=== PATIENT | male | born 1985 | race Caucasian/White ===

== ENCOUNTER 2020-12-28 22:02 | Inpatient (IN) | payer MEDICAID ==
[~2020-12-28] VITALS: Ht 175.3 cm; Wt 65.8 kg
[2020-12-28] MEDS ORDERED: PANTOPRAZOLE SODIUM 40 MG/VIAL IV STA (23:14)
[2020-12-28] MEDS ORDERED: SODIUM CHLORIDE 0.9% 1,000 ML IV ONE (23:15)
[2020-12-29 00:23] LABS: BASOPHILS % 1.1 % (0.0-2.0); HEMATOCRIT. 41.5 % (42.0-52.0); HEMOGLOBIN. 14.3 g/dL (14.0-18.0); LYMPHOCYTES % 17.8 % (20.0-50.0); MEAN CORPUSCULAR HEMOGLOBIN 30.2 pg (28.0-32.0); MEAN CORPUSCULAR VOLUME 87.5 fL (80.0-94.0); MEAN PLATELET VOLUME 7.5 fl (7.4-10.4); MONOCYTES % 6.9 % (2.0-8.0); NEUTROPHILS % 72.2 % (40.0-76.0); PLATELET 375 x1000/uL (130-400); RED BLOOD CELL COUNT 4.74 mill/uL (4.7-6.1); RED CELL DISTRIBUTION WIDTH 13.1 % (11.6-14.6)
[2020-12-29 00:29] LABS: CHLORIDE 105 mEq/L (98-107)
[2020-12-29 00:48] LABS: CLARITY URINE CLEAR (CLEAR); COLOR URINE YELLOW (YELLOW); KETONES URINE NEGATIVE (NEGATIVE); LEUKOCYTE ESTERASE URINE NEGATIVE (NEGATIVE); NITRITE URINE NEGATIVE (NEGATIVE); OCCULT BLOOD URINE NEGATIVE (NEGATIVE); PH URINE 7.5 (4.5-8.0); PROTEIN URINE NEGATIVE (NEGATIVE); SPECIFIC GRAVITY URINE 1.021 (1.005-1.030); UROBILINOGEN URINE 0.2 E.U./dL (0.2-1.0)
[2020-12-29 01:09] LABS: PROTHROMBIN TIME 10.3 sec (9.6-11.0)
[2020-12-29] MEDS ORDERED: ONDANSETRON HCL 4MG/2ML INJ IV ONE (03:00)
[2020-12-29] MEDS ORDERED: MORPHINE SULFATE 4 MG/ML CPJ (NOT FOR IM USE) IV ONE (03:00)
[2020-12-29] MEDS ORDERED: LORAZEPAM 2MG/ML CPJ IV PRN (07:45)
[2020-12-29] MEDS ORDERED: MORPHINE SULFATE 2 MG/ML CPJ (NOT FOR IM USE) IV PRN (07:45)
[2020-12-29] MEDS ORDERED: HYDRALAZINE 20MG/ML VIAL IV PRN (07:45)
[2020-12-29] MEDS ORDERED: IPRATROPIUM/ALBUTEROL 0.5-3(2.5)MG/3ML NEB NEB PRN (07:45)
[2020-12-29] MEDS ORDERED: GUAIFENESIN 200MG/10ML SUGAR FREE UDC PO PRN (07:45)
[2020-12-29] MEDS ORDERED: DOCUSATE SODIUM 100MG CAPSULE PO PRN (07:45)
[2020-12-29] MEDS ORDERED: HYDROCODONE/ACETAMINOPHEN 10/325MG TABLET PO PRN (07:45)
[2020-12-29] MEDS ORDERED: ONDANSETRON HCL 4MG/2ML INJ IV PRN (07:45)
[2020-12-29] MEDS ORDERED: NA PHOS,M-B/NA PHOS,DI-BA ENEMA 118ML PR PRN (07:45)
[2020-12-29] MEDS ORDERED: DIPHENHYDRAMINE 50MG/ML VIAL IV PRN (07:45)
[2020-12-29] MEDS ORDERED: ACETAMINOPHEN 325MG TABLET PO PRN (07:45)
[2020-12-29] MEDS ORDERED: MAGNESIUM/ALUMINUM HYDROXIDE/SIMETHICONE 30ML UDC PO PRN (07:45)
[2020-12-29] MEDS ORDERED: CLONIDINE 0.1MG TABLET PO PRN (07:45)
[2020-12-29] MEDS ORDERED: MVI, ADULT NO.1 10 ML, FOLIC ACID 1 MG, THIAMINE HCL 100 MG in SODIUM CHLORIDE 0.9% 1,0... IV SCH (08:00)
[2020-12-29 10:49] VITALS: BP 129/89
[2020-12-29] MEDS: SODIUM CHLORIDE 0.9% INJ 3ML FLUSH IVF SCH ×2 (14:00→21:20)
[2020-12-29] MEDS: PANTOPRAZOLE SODIUM 40 MG/VIAL IV SCH ×2 (15:14→21:19)
[2020-12-29] MEDS: METOCLOPRAMIDE HCL 10MG/2ML VIAL IV SCH ×2 (15:15→18:54)
[2020-12-29 16:00] VITALS: BP 116/88
[2020-12-29] MEDS: SODIUM CHLORIDE 0.45% 1,000 ML IV SCH (18:54)
[2020-12-29 20:00] VITALS: BP 128/93
[2020-12-30] VITALS: BP 96/64
[2020-12-30 04:00] VITALS: BP 125/70
[2020-12-30 05:58] LABS: CHLORIDE 108 mEq/L (98-107)
[2020-12-30 06:01] LABS: PROTHROMBIN TIME 10.7 sec (9.6-11.0)
[2020-12-30 06:20] LABS: BASOPHILS % 2.2 % (0.0-2.0); EOSINOPHILS % 7.9 % (0.0-5.0); HEMOGLOBIN. 13.2 g/dL (14.0-18.0); LYMPHOCYTES % 40.6 % (20.0-50.0); MEAN CORPUSCULAR HEMOGLOBIN 30.6 pg (28.0-32.0); MEAN CORPUSCULAR VOLUME 88.2 fL (80.0-94.0); MEAN PLATELET VOLUME 7.7 fl (7.4-10.4); MONOCYTES % 8.1 % (2.0-8.0); NEUTROPHILS % 41.2 % (40.0-76.0); PLATELET 347 x1000/uL (130-400); RED BLOOD CELL COUNT 4.31 mill/uL (4.7-6.1); RED CELL DISTRIBUTION WIDTH 13.2 % (11.6-14.6)
[2020-12-30] MEDS: SODIUM CHLORIDE 0.9% INJ 3ML FLUSH IVF SCH ×3 (06:48→21:18)
[2020-12-30] MEDS: METOCLOPRAMIDE HCL 10MG/2ML VIAL IV SCH ×5 (06:52→23:59)
[2020-12-30 08:00] VITALS: BP 136/68
[2020-12-30] MEDS: SODIUM CHLORIDE 0.45% 1,000 ML IV SCH ×3 (08:00→16:00)
[2020-12-30] MEDS: MULTIVITAMINS,THER W-MINERALS TABLET PO SCH (09:00)
[2020-12-30] MEDS: FOLIC ACID 1MG TABLET PO SCH (09:00)
[2020-12-30] MEDS: THIAMINE HCL 100MG TABLET PO SCH (09:00)
[2020-12-30] MEDS: PANTOPRAZOLE SODIUM 40 MG/VIAL IV SCH ×2 (09:05→21:16)
[2020-12-30] MEDS ORDERED: KETAMINE HCL 50 MG/ML 10ML ONE (11:00)
[2020-12-30] MEDS ORDERED: MIDAZOLAM HCL 5 MG/5 ML VIAL ONE (11:03)
[2020-12-30] MEDS ORDERED: LIDOCAINE HCL 1% 20ML VIAL (Pyxis) INJ ONE (11:03)
[2020-12-30] MEDS ORDERED: PROPOFOL 200MG/20ML VIAL IV ONE (11:03)
[2020-12-30] MEDS: SUCRALFATE 1 G/10 ML UDC PO SCH ×3 (14:03→21:16)
[2020-12-30] MEDS ORDERED: HYDRALAZINE 10 MG in SODIUM CHLORIDE 0.9% 49.5 ML IV PRN (17:00)
[2020-12-30 20:00] VITALS: BP 118/90
[2020-12-31] VITALS: BP 123/88
[2020-12-31 04:00] VITALS: BP 127/89
[2020-12-31 05:25] LABS: CHLORIDE 107 mEq/L (98-107)
[2020-12-31 05:28] LABS: BASOPHILS % 3.2 % (0.0-2.0); EOSINOPHILS % 6.8 % (0.0-5.0); HEMOGLOBIN. 13.2 g/dL (14.0-18.0); LYMPHOCYTES % 32.4 % (20.0-50.0); MEAN CORPUSCULAR HEMOGLOBIN 30.7 pg (28.0-32.0); MEAN CORPUSCULAR VOLUME 88.2 fL (80.0-94.0); MEAN PLATELET VOLUME 7.9 fl (7.4-10.4); MONOCYTES % 8.8 % (2.0-8.0); NEUTROPHILS % 48.8 % (40.0-76.0); PLATELET 327 x1000/uL (130-400); RED CELL DISTRIBUTION WIDTH 12.8 % (11.6-14.6)
[2020-12-31] MEDS: SODIUM CHLORIDE 0.45% 1,000 ML IV SCH ×2 (06:11)
[2020-12-31] MEDS: METOCLOPRAMIDE HCL 10MG/2ML VIAL IV SCH ×2 (06:11→12:00)
[2020-12-31] MEDS: SUCRALFATE 1 G/10 ML UDC PO SCH ×2 (06:11→12:20)
[2020-12-31] MEDS: SODIUM CHLORIDE 0.9% INJ 3ML FLUSH IVF SCH (06:12)
[2020-12-31 08:00] VITALS: BP 123/81
[2020-12-31] MEDS: THIAMINE HCL 100MG TABLET PO SCH (10:15)
[2020-12-31] MEDS: MULTIVITAMINS,THER W-MINERALS TABLET PO SCH (10:15)
[2020-12-31] MEDS: FOLIC ACID 1MG TABLET PO SCH (10:15)
[2020-12-31] MEDS: PANTOPRAZOLE SODIUM 40 MG/VIAL IV SCH (10:15)
[2020-12-31 11:03] VITALS: BP 123/81
[2020-12-31 12:10] VITALS: BP 129/96
== END 2020-12-31 12:45 | disposition home or self-care (01) | DRG 241 ==
LOC: ER 22:02 → 6EST 12-29 02:19 → EDBEDREQTM 12-29 02:23 → EDBEDREQ 12-29 02:23 → ENRESERV 12-29 07:09
PROVIDERS: ADMIT Internal Medicine; ATTEND Internal Medicine
PROC: 0DB78ZX Excision of Stomach, Pylorus, Via Natural or Artificial Opening Endoscopic, Diagnostic (ICD-10-PCS; principal; 2020-12-30)
DX: K29.71 Gastritis, unspecified, with bleeding (principal); R65.10 Systemic inflammatory response syndrome (SIRS) of non-infectious origin without acute organ dysfunction; K22.6 Gastro-esophageal laceration-hemorrhage syndrome; Z20.822 Contact with and (suspected) exposure to COVID-19; F10.130 Alcohol abuse with withdrawal, uncomplicated; F41.9 Anxiety disorder, unspecified; E78.00 Pure hypercholesterolemia, unspecified; Z79.899 Other long term (current) drug therapy; Z82.49 Family history of ischemic heart disease and other diseases of the circulatory system; Z71.41 Alcohol abuse counseling and surveillance of alcoholic
CPT/HCPCS: 36415; 76700; 80048; 80053; 81003; 85025; 87426; 88305; 88312; 88313; 93005; 99285; C9113; J2060; J2250; J2704; J2765; J3411; J3490; J7030